=== PATIENT | male | born 1995 | race Caucasian/White ===

== ENCOUNTER 2016-08-05 00:07 | Emergency (ER) | payer OTHER ==
[2016-08-05 02:17] LABS: HEMOGLOBIN 15.5 gm/dl (14.0-17.5); RED BLOOD COUNT 5.35 M/UL (4.20-5.50); WHITE BLOOD COUNT 12.1 K/UL (4.5-11.0)
[2016-08-05 02:41] LABS: BUN/CREATININE RATIO 19 (0-10)
== END 2016-08-05 04:15 | disposition home or self-care (01) ==
LOC: ER1 00:07
PROVIDERS: Family Medicine
DX: R07.9 Chest pain, unspecified (principal); R06.02 Shortness of breath; J45.909 Unspecified asthma, uncomplicated; F17.210 Nicotine dependence, cigarettes, uncomplicated; Z88.0 Allergy status to penicillin; Z88.5 Allergy status to narcotic agent; Z90.49 Acquired absence of other specified parts of digestive tract
CPT/HCPCS: 36415; 71020; 80053; 82550; 82553; 83874; 84484; 85025; 85379; 93005; 99285